=== PATIENT | female | born 1955 | race Caucasian/White ===

== ENCOUNTER → 2019-01-07 09:51 | Outpatient (CLI) | payer OTHER, MEDICAID, SELFPAY ==
[2019-01-07 10:01] LABS: Bacteria Urine None Seen
[2019-01-07 10:32] LABS: Add Manual Diff / Slide Review NO; Basophils Absolute Auto 100 /uL (0-100); Basophils Percent Auto 1.2 % (0-2); Eosinophils Absolute Auto 200 /uL (0-450); Hemoglobin 14.4 g/dL (12.0-16.0); Lymphocytes Absolute Auto 1500 /uL (1100-4500); Lymphocytes Percent Auto 30.8 % (25-40); Mean Corpuscular HGB Conc 34.2 % (30-36); Mean Corpuscular Hemoglobin 29.3 PG (26-34); Mean Corpuscular Volume 85.5 fL (80-100); Monocytes Absolute Auto 400 /uL (0-900); Monocytes Percent Auto 8.9 % (3-14); Neutrophils Absolute Auto 2600 /uL (1500-7000); Neutrophils Percent Auto 54.1 % (50-75); Platelet Count 330 X10^3/uL (150-400); Red Blood Cell Count 4.92 X10^6/uL (4.0-5.2); Red Cell Distribution Width 12.8 % (11.6-14.8); White Blood Cell Count 4.7 X10^3/uL (4.5-11.0)
[2019-01-07 11:06] LABS: Alanine Aminotransferase 27 IU/L (9-52); Albumin 4.4 g/dL (3.5-5.0); Albumin Globulin Ratio 1.5 (1.0-2.8); Alkaline Phosphatase 84 U/L (38-126); Aspartate Aminotransferase 24 IU/L (14-36); BUN Creatinine Ratio 16.7 (6-22); Bilirubin Total 0.6 mg/dL (0.2-1.3); Blood Urea Nitrogen 10 mg/dL (7-17); Calcium 9.4 mg/dL (8.4-10.2); Carbon Dioxide 28 mmol/L (22-32); Chloride 103 mmol/L (98-107); Cholesterol 224 mg/dL (140-199); Estimated Glomerular Filt Rate > 60.0 mL/min (>60); Glucose 110 mg/dL (80-110); HDL Cholesterol 59 mg/dL (40-60); HEMOLYSIS < 15 (0-50); LDL Cholesterol Calculated 150 mg/dL (<100); Potassium 4.4 mmol/L (3.4-5.1); Sodium 140 mmol/L (137-145); Total Protein 7.4 g/dL (6.3-8.2); Triglycerides 73 mg/dL (35-150)
[2019-01-07 11:24] LABS: Appearance Urine UA CLEAR; Bilirubin Urine UA NEGATIVE (NEGATIVE); Color Urine UA YELLOW; Glucose Urine UA NEGATIVE (Negative); Ketones Urine UA NEGATIVE (NEGATIVE); Leukocyte Esterase Urine UA NEGATIVE (NEGATIVE); Nitrite Urine UA NEGATIVE (Negative); Occult Blood Urine UA NEGATIVE (Negative); Protein Urine UA NEGATIVE (Negative); Specific Gravity Urine UA 1.015 (1.000-1.035); Urobilinogen Urine UA 0.2 E.U./dL (0.2); pH Urine UA 6.5 (4.5-8.0)
[2019-01-07 11:26] LABS: Free T3, Triiodothyronine Free 3.54 pg/mL (2.77-5.27); T4 Total Thyroxine 6.67 ug/dL (5.5-11.0)
[2019-01-07 11:31] LABS: Progesterone, Total 2.08 ng/mL
[2019-01-07 11:36] LABS: Cortisol AM (Before 10AM) 6.74 ug/dL (4.46-22.7)
[2019-01-07 12:13] LABS: Culture Indicated Urine Cult Not Indicated; RBC Urine 0-1/HPF (0-5/HPF); Squamous Epithelial Cell Urine 5-10 /HPF (0-5/HPF); WBC Urine 1-5/HPF (0-5/HPF)
[2019-01-09 16:00] LABS: Estrogen 94.9 pg/mL
== END ==
PROVIDERS: PCP Family Medicine; Visit Provider Naturopath
DX: Z00.00 Encounter for general adult medical examination without abnormal findings (principal); N95.1 Menopausal and female climacteric states; F41.9 Anxiety disorder, unspecified
CPT/HCPCS: 36415; 80053; 80061; 81001; 82533; 82672; 84144; 84436; 84443; 84481; 85025

== ENCOUNTER → 2020-01-07 09:12 | Outpatient (CLI) | payer OTHER, MEDICAID, SELFPAY ==
[2020-01-07 10:56] LABS: Hematocrit 43.1 % (36-46); Hemoglobin 14.4 g/dL (12.0-16.0); Mean Corpuscular HGB Conc 33.4 % (30-36); Mean Corpuscular Hemoglobin 29.1 PG (26-34); Mean Corpuscular Volume 87.2 fL (80-100); Platelet Count 293 X10^3/uL (150-400); Red Blood Cell Count 4.95 X10^6/uL (4.0-5.2); Red Cell Distribution Width 13.1 % (11.6-14.8); White Blood Cell Count 4.8 X10^3/uL (4.5-11.0)
[2020-01-07 11:11] LABS: Alanine Aminotransferase 23 IU/L (<35); Albumin 4.3 g/dL (3.5-5.0); Albumin Globulin Ratio 1.6 (1.0-2.8); Alkaline Phosphatase 86 U/L (38-126); Aspartate Aminotransferase 24 IU/L (14-36); BUN Creatinine Ratio 14.8 (6-22); Bilirubin Total 0.6 mg/dL (0.2-1.3); Blood Urea Nitrogen 8 mg/dL (7-17); Calcium 9.4 mg/dL (8.4-10.2); Carbon Dioxide 26 mmol/L (22-32); Chloride 105 mmol/L (98-107); Cholesterol 213 mg/dL (140-199); Estimated Glomerular Filt Rate > 60.0 mL/min (>60); Globulin 2.7 g/dL (1.7-4.1); Glucose 108 mg/dL (80-110); HDL Cholesterol 49 mg/dL (40-60); HEMOLYSIS < 15 (0-50); LDL Cholesterol Calculated 145 mg/dL (<100); Sodium 138 mmol/L (137-145); Triglycerides 97 mg/dL (35-150)
[2020-01-07 11:32] LABS: Free T3, Triiodothyronine Free 3.54 pg/mL (2.77-5.27)
[2020-01-07 11:46] LABS: Thyroid Stimulating Hormone 0.958 uIU/mL (0.47-4.68)
== END ==
PROVIDERS: PCP Nurse Practitioner; Referring Provider Nurse Practitioner; Visit Provider Nurse Practitioner
DX: E04.2 Nontoxic multinodular goiter (principal); E78.5 Hyperlipidemia, unspecified; G40.909 Epilepsy, unspecified, not intractable, without status epilepticus
CPT/HCPCS: 36415; 80053; 80061; 84439; 84443; 84481; 85027

== ENCOUNTER → 2020-02-04 11:57 | Outpatient (CLI) | payer OTHER, MEDICAID, SELFPAY ==
[2020-02-05 09:55] LABS: COVID19 Sendout Not Detected (Not Detect)
== END ==
PROVIDERS: PCP Nurse Practitioner; Visit Provider Nurse Practitioner
DX: Z11.59 Encounter for screening for other viral diseases (principal)
CPT/HCPCS: 87635

== ENCOUNTER 2020-02-07 07:23 | Day surgery (SDC) | payer OTHER, MEDICAID, SELFPAY ==
[2020-02-07] VITALS (18 sets, daily range): BP systolic 75–111; BP diastolic 42–63; PULSE 53–859; RESP 10–16; TEMP 35.9–36.6; O2SAT 92–100; BMI 25.7
[2020-02-07] MEDS: SODIUM CHLORIDE 0.9% 1,000 ML 200 ML IV (07:51)
--- NOTE | 2020-02-07 08:22 | PM.HP.1 ---
History of Present Illness History of Present Illness Date Patient Seen: 02/07/20 Time Patient Seen: 08:22 Chief complaint: SDC Narrative: This is a 64-year-old woman with history of screening colonoscopy 10 years ago which was normal. She is here for her 10 year follow-up. She denies any melena, hematochezia, unexplained abdominal pain, unexplained weight loss, changes in bowel habit. ROS: Sinus problems, depression, anemia, eczema. Thirteen system review is otherwise negative other than as mentioned below and in HPI. PE: GENERAL: Well groomed and cooperative. Appears stated age. Answers questions promptly and appropriately. Vital signs noted. HENT: Normocephalic, atraumatic. Hearing intact. EYES: Conjunctiva pink, sclera white, no periorbital swelling. CARDIOVASCULAR: Regular rate. No pedal edema. RESPIRATORY: Non-tachypneic, breathing comfortably on room air. GASTROINTESTINAL: Abdomen soft and non-distended GENITALURINARY: No flank tenderness. MUSCULOSKELETAL: Equal tone and mass bilaterally. SKIN: Warm, dry, soft, appropriate color for ethnicity. No other lesions, rashes, or wounds. NEURO: Alert and Oriented X 3. No gross sensory deficits, or cognitive issues. PSYCH: Appropriate affect and mood. Patient History Medical History Anemia (Resolved 1974) Chlamydia (Resolved 1994) Depression (Chronic 2004) Dyspareunia (Acute) Eczema (Chronic 2014) Fibroids (Resolved 2002) Genital warts (Chronic 1994) HPV in female (Resolved 1994) Insomnia (Acute) Irregular menstrual cycle (Resolved 1975) Multinodular thyroid (Chronic ~2010) Ovarian cyst (Resolved 2002) Painful menstrual periods (Resolved 2002) Recurrent sinusitis (Resolved 1996) Rheumatic fever (Resolved 1957) Shoulder pain (Resolved 2014) Sjogren's syndrome (Chronic 2014) Skin macule (Acute) Tinnitus of both ears (Chronic 2000) Surgical History History of hysteroscopy (Resolved 08/2009) Status post dilation and curettage Status post surgery (08/18/09) Family & Social History Family History Grandfather Age: 99 Depression Mother Age: 86 Depression COPD (chronic obstructive pulmonary disease) Sister Age: 63 Diabetes mellitus Mental health problem Father Cancer Social History: household members spouse Tobacco & Substance use: Smoking Status Former smoker alcohol intake frequency holiday/special occasion Substance Use Type does not use Meds Home Medications and Allergies Home Medications Medication Instructions Recorded Confirmed Type Biest SR 80/20 See Rx Instructions PO DAILY 11/12/19 02/07/20 History Progesterone E4M See Rx Instructions PO BEDTIME 11/12/19 02/07/20 History pancreatin 1 each PO .COMPLEX 11/18/19 02/07/20 History conjugated estrogens 0.625 mg/gram 0.625 mg VAG DAILY #30 gram 12/04/19 02/07/20 Rx vaginal cream Estriol 1mg Vaginal Emiliana See Rx Instructions .ROUTE 01/20/20 02/07/20 Rx .COMPLEX #30 each Allergies Allergy/AdvReac Type Severity Reaction Status Date / Time codeine Allergy Verified 02/07/20 07:37 oxycodone AdvReac Severe LOSS OF Verified 02/07/20 07:19 CONSCIOUSNESS tetracycline AdvReac Mild NAUSEA Verified 02/07/20 07:19 Exam Vital Signs (past 8 hours): - 02/07/20 07:39 Temperature 97.9 F Pulse Rate 62 Respiratory Rate 16 Blood Pressure 111/62 Pulse Oximetry 98 Oxygen Delivery Method Room Air Assessment & Plan Assessment and plan (1) At average risk for colon cancer: Status: Acute Assessment & Plan narrative: Risks and benefits of screening colonoscopy and possible polypectomy were discussed with the patient including risk of bleeding, perforation, need for additional procedures, risks of anesthesia. The patient desires to proceed with the colonoscopy procedure. COVID-19 COVID-19 status: Negative Result date/Date tested (Pos, Neg/Pending): 02/04/20 Time Spent With Patient Time with patient: 15-24 minutes Quality VTE Deep Vein Thrombosis/Pulmonary Embolism Present on Admission: No
--- NOTE | 2020-02-07 08:29 | PM.OP.ENDO ---
Operative Date/Time/Diagnoses Date of procedure: 02/07/20 Time of procedure: 08:29 Pre-op diagnosis: Average risk for colon cancer, due for 10 year screening Post-op diagnosis: other (A few scattered diverticula, low-grade internal hemorrhoids) Procedure & Clinicians Study performed: Colonoscopy Conscious sedation performed by endoscopist Same procedure as scheduled: Yes Indications: Average risk for colon cancer, had a normal colonoscopy 10 years ago Surgeon: Marisa Velasco Procedure Notes SCOAP/Timeout: Performed Procedure in detail: The patient was brought to the room and placed in left lateral decubitus position with all bony prominences padded. A time-out was performed and then the patient was given procedural sedation starting with 2 mg of Versed and [100] mcg of fentanyl. Total of 3 mg of Versed and 150 micro g of fentanyl were given for the entire procedure. Vitals were monitored throughout the procedure and remained stable. Once adequately sedated, the procedure was begun. A rectal exam was performed revealing [no abnormalities]. The colonoscope was then introduced to the rectum and advanced to the cecum in the usual fashion. []The cecum was identified by the appendiceal orifice, the mucosal tri-fold, and the ileocecal valve. The colon was rather tortuous and required some maneuvers using counter pressure on the abdomen, and the scope stiffener to reach the cecum safely. The scope was then retracted while rotating side to side and examining each mucosal fold. There were a few scattered diverticula, with no signs of diverticulitis. No polyps or masses were seen. [] At the conclusion of the procedure retroflexion was performed and [small grade 1-2 internal hemorrhoids without stigmata of bleeding were seen]. The scope was then withdrawn from the rectum the procedure was concluded. The patient tolerated the procedure well and was transferred to the PACU in stable condition. Scope withdrawal time: 8 Sedation minutes: 13 Findings: other findings (Few scattered diverticula, low-grade internal) Specimen(s): none sent Complications: none Impression: Low-grade diverticulosis, low-grade internal hemorrhoids, otherwise normal colon Post-procedure Recommendations: Colonscopy in 10 years Follow up: as needed Disposition: PACU
[2020-02-07] MEDS: fentaNYL 250 MCG/5 ML INJ IV ×2 (08:30→08:35)
[2020-02-07] MEDS: MIDAZOLAM 5 MG/5 ML VIAL IV ×2 (08:30→08:35)
--- NOTE | 2020-02-07 09:58 | SUR.PHASEII ---
0954 - Pt nauseated after getting dressed. Aromatherapy instituted. Ice pack behind neck. BP rechecked = 75/42. Denies chest pain and SOB. C/O dizziness. Dr Velasco notified by WILVER Desai. See orders.
[2020-02-07] MEDS: ONDANSETRON 4 MG/2 ML INJ (10:05)
[2020-02-07] MEDS: SODIUM CHLORIDE 0.9% 1,000 ML 1000 ML IV (10:08)
--- NOTE | 2020-02-07 10:08 | SUR.PHASEII ---
Notified Dr Velasco of hypotension; patient pale, nauseated. Orders received for zofran, normal saline and EKG. Patient denies any CP or SOB.
--- NOTE | 2020-02-07 10:09 | SUR.PHASEII ---
1010- EKG done. IVF bolus infusing. Color pink. Nausea improved. BP 93/59.
--- NOTE | 2020-02-07 10:21 | SUR.PHASEII ---
updated. No longer nauseated.
--- NOTE | 2020-02-07 10:27 | SUR.PHASEII ---
Dr Velasco at bedside with patient.
--- NOTE | 2020-02-07 11:13 | SUR.PHASEII ---
1107 - Dr Cruz updated on pt status. OK for pt to be discharged.
== END 2020-02-07 11:10 | disposition home or self-care (01) ==
PROVIDERS: PCP Nurse Practitioner; Referring Provider Nurse Practitioner; Visit Provider Surgery
PROC: 0DJD8ZZ Inspection of Lower Intestinal Tract, Via Natural or Artificial Opening Endoscopic (ICD-10-PCS; CPT 45378; principal; 2020-02-07 08:30)
DX: Z12.11 Encounter for screening for malignant neoplasm of colon (principal); K57.30 Diverticulosis of large intestine without perforation or abscess without bleeding; K64.0 First degree hemorrhoids; R11.0 Nausea; R42 Dizziness and giddiness
CPT/HCPCS: 45378; 93005; 99152; J2250; J2405; J3010

== ENCOUNTER → 2020-03-09 13:37 | Outpatient (CLI) | payer OTHER, MEDICAID, SELFPAY ==
--- NOTE | 2020-03-09 13:38 | DI.ECHO.S_ITS ---
[facility]---------+ [facility] +---------+ : : [address] [place] : : : : [id number] : : : : Phone: [phone]+ Echocardiogram Report + + :Name: SHANNON GOODWIN Study Date: 03/09/2020 Height: 65 in : :[facility] Weight: 155 lb : : Gender: Female BSA: 1.8 m2 : :: 1955 Age: 64 yrs BP: 155/78 mmHg: :Reason For Study: RIGHT BUNDLE BRANCH BLOCK : :Ordering Physician: SAUL, : :RAKEL Performed By: Cony Hernandez : :Referring: RAKEL HUGHES : + + Interpretation Summary Normal echo study. Procedure: A two-dimensional transthoracic echocardiogram with color flow and Doppler was performed. The study quality was technically adequate. There is no prior echocardiogram noted for this patient. The heart rate ranged between 59-64 bpm during the study. Left Ventricle: The left ventricle is normal in size and wall thickness. The ejection fraction is estimated to be 60-65%. There are no focal wall motion abnormalities. Diastolic parameters suggest probable normal left ventricular diastolic function and normal filling pressures. Right Ventricle: The right ventricle is normal in size and function. Atria: Both atria are normal in size. There is no Doppler evidence for an interatrial shunt. Mitral Valve: The mitral valve is normal in structure and function. There is trace mitral regurgitation. Aortic Valve: The aortic valve is trileaflet. The aortic valve opens well. There is no aortic valve stenosis. There is trace aortic regurgitation. Tricuspid Valve: The tricuspid valve is normal in structure and function. There is trace tricuspid regurgitation. Pulmonic Valve: The pulmonic valve leaflets are thin and pliable; valve motion is normal. There is no pulmonic valvular regurgitation. Great Vessels: The aortic root is normal size. The dimensions of the ascending aorta are normal. The inferior vena cava appeared normal. Pericardium/ Pleura There is no pericardial effusion. There is no pleural effusion. MMode/2D Measurements & Calculations LVIDd: 4.3 cm LVOT diam: 1.9 cm LVIDs: 2.7 cm Ao root diam: 2.9 cm FS: 37.4 % asc Aorta Diam: 2.7 cm EPSS: 0.21 cm Ao Arch Diam (Prox Trans): 2.7 cm IVSd: 0.69 cm LVPWd: 0.75 cm LV yoder. diameter/BSA (cm/m^2): 2.4 LV sys. diameter/BSA (cm/m^2): 1.5 LA A2 area: 19.5 cm2 RA long axis: 4.9 cm LA A4 area: 16.6 cm2 RA area: 15.2 cm2 LA length (vol): 5.5 cm RA vol: 40.4 ml LA vol: 49.7 ml RA : 22.8 ml/m2 LA vol index: 28.0 ml/m2 IVC diam: 1.1 cm RVD1 (basal): 2.9 cm TAPSE: 2.6 cm Doppler Measurements & Calculations Ao V2 max: 162.3 cm/sec LVOT Max Lewis: 145.3 cm/sec Ao V2 mean: 109.5 cm/sec LV V1 max P.4 mmHg Ao max P.5 mmHg LV V1 VTI: 33.2 cm Ao mean P.5 mmHg DWIGHT(I,D): 2.7 cm2 Ao V2 VTI: 36.3 cm DWIGHT(V,D): 2.7 cm2 sev ratio: 0.92 DWIGHT indexed to BSA (cm^2/m^2): 1.5 MV E max lewis: 96.5 cm/sec TR max lewis: 227.0 cm/sec MV A max lewis: 77.2 cm/sec TR max P.6 mmHg MV E/A: 1.2 PA V2 max: 82.8 cm/sec Med Peak E' Lewis: 9.6 cm/sec PA V2 mean: 54.9 cm/sec E/E' med: 10.0 PA mean P.4 mmHg Lat Peak E' Lewis: 11.9 cm/sec PA pr(Accel): 13.9 mmHg E/E' lat: 8.1 E/e' average: 9.1 MV dec time: 0.25 sec SV(LVOT): 99.0 ml Electronically signed by: Liana Mansfield on Reading Physician:03/09/2020 03:48 PM
== END ==
PROVIDERS: PCP Nurse Practitioner; Referring Provider Nurse Practitioner; Visit Provider Nurse Practitioner
DX: I45.10 Unspecified right bundle-branch block (principal)
CPT/HCPCS: 93306

== ENCOUNTER → 2020-04-03 09:55 | Outpatient (CLI) | payer OTHER, MEDICAID, SELFPAY ==
--- NOTE | 2020-04-03 09:56 | DI.RAD.S_ITS ---
PROCEDURE: XR SHOULDER LT MIN 2V INDICATIONS: left shoulder pain ; injury TECHNIQUE: 3 views of the shoulder were acquired. COMPARISON: None. FINDINGS: Bones: No fractures or dislocations. No suspicious bony lesions. Visualized ribs appear intact. Mild joint narrowing with periarticular osteophyte formation. Soft tissues: No suspicious soft tissue calcifications. IMPRESSION: Mild acromioclavicular and glenohumeral joint degeneration. Dictated by: Adan Means Merline Interpreted: Christiana Barron MD on 04/03/2020 at 11:56 Approved by: Christiana Barron M.D. on 04/03/2020 at 13:08
== END ==
PROVIDERS: PCP Nurse Practitioner; Referring Provider Registered Nurse; Visit Provider Registered Nurse
DX: S49.92XA Unspecified injury of left shoulder and upper arm, initial encounter (principal); M25.512 Pain in left shoulder; M19.012 Primary osteoarthritis, left shoulder; X58.XXXA Exposure to other specified factors, initial encounter
CPT/HCPCS: 73030

== ENCOUNTER → 2020-06-19 10:31 | Outpatient (CLI) | payer OTHER, MEDICAID, SELFPAY ==
[2020-06-19] MEDS: COVID-19 VACC(MODERNA-1)/PF 100 MCG/0.5 ML VIAL IM (10:36)
== END ==
PROVIDERS: PCP Nurse Practitioner; Visit Provider Internal Medicine
DX: Z23 Encounter for immunization (principal)
CPT/HCPCS: 0011A; 91301

== ENCOUNTER → 2020-07-17 10:25 | Outpatient (CLI) | payer OTHER, MEDICAID, SELFPAY ==
[2020-07-17] MEDS: COVID-19 VACC #2, MRNA(MOD) 100 MCG/0.5 ML VIAL IM (10:33)
== END ==
PROVIDERS: PCP Nurse Practitioner; Visit Provider Internal Medicine
DX: Z23 Encounter for immunization (principal)
CPT/HCPCS: 0012A; 91301

== ENCOUNTER → 2022-02-08 08:36 | Outpatient (CLI) | payer OTHER, MEDICAID, SELFPAY ==
[2022-02-09 08:48] LABS: Fecal Immunochemical Test Negative (Negative)
== END ==
PROVIDERS: PCP Nurse Practitioner; Referring Provider Nurse Practitioner; Visit Provider Nurse Practitioner
DX: Z00.00 Encounter for general adult medical examination without abnormal findings (principal); Z12.11 Encounter for screening for malignant neoplasm of colon
CPT/HCPCS: 82274

== ENCOUNTER → 2022-02-24 07:28 | Outpatient (CLI) | payer OTHER, MEDICAID, SELFPAY ==
[2022-02-24 08:37] LABS: Add Manual Diff / Slide Review NO; Basophils Absolute Auto 100 /uL (0-100); Basophils Percent Auto 1.3 % (0-2); Eosinophils Absolute Auto 600 /uL (0-450); Eosinophils Percent Auto 10.7 % (2-4); Hematocrit 42.4 % (36-46); Hemoglobin 14.3 g/dL (12.0-16.0); Lymphocytes Absolute Auto 1700 /uL (1100-4500); Lymphocytes Percent Auto 31.3 % (25-40); Mean Corpuscular HGB Conc 33.7 % (30-36); Monocytes Absolute Auto 500 /uL (0-900); Monocytes Percent Auto 8.6 % (3-14); Neutrophils Absolute Auto 2600 /uL (1500-7000); Neutrophils Percent Auto 48.1 % (50-75); Platelet Count 312 X10^3/uL (150-400); Red Blood Cell Count 4.93 X10^6/uL (4.0-5.2); Red Cell Distribution Width 13.5 % (11.6-14.8); White Blood Cell Count 5.5 X10^3/uL (4.5-11.0)
[2022-02-24 08:54] LABS: Alanine Aminotransferase 24 IU/L (<35); Albumin 4.1 g/dL (3.5-5.0); Albumin Globulin Ratio 1.2 (1.0-2.8); Alkaline Phosphatase 81 U/L (38-126); Aspartate Aminotransferase 29 IU/L (14-36); BUN Creatinine Ratio 14.5 (6-22); Bilirubin Total 0.6 mg/dL (0.2-1.3); Blood Urea Nitrogen 9 mg/dL (7-17); Calcium 8.9 mg/dL (8.4-10.2); Carbon Dioxide 27 mmol/L (22-32); Chloride 105 mmol/L (98-107); Cholesterol 229 mg/dL (140-199); Estimated Glomerular Filt Rate > 60 mL/min (>60); Globulin 3.3 g/dL (1.7-4.1); Glucose 109 mg/dL (80-110); HDL Cholesterol 51 mg/dL (40-60); HEMOLYSIS < 15 (0-50); LDL Cholesterol Calculated 158 mg/dL (<100); Potassium 4.4 mmol/L (3.4-5.1); Sodium 138 mmol/L (137-145); Total Protein 7.4 g/dL (6.3-8.2); Triglycerides 99 mg/dL (35-150)
[2022-02-24 09:03] LABS: Free T3, Triiodothyronine Free 3.93 pg/mL (2.77-5.27); Free T4, Direct Thyroxine 1.11 ng/dL (0.78-2.19)
[2022-02-24 09:17] LABS: Thyroid Stimulating Hormone 1.24 uIU/mL (0.47-4.68)
[2022-02-24 16:56] LABS: Hep C Virus Ab w/Reflex Quant NEGATIVE s/c (NEGATIVE)
== END ==
PROVIDERS: PCP Nurse Practitioner; Referring Provider Nurse Practitioner; Visit Provider Nurse Practitioner
DX: Z00.00 Encounter for general adult medical examination without abnormal findings (principal); Z11.59 Encounter for screening for other viral diseases
CPT/HCPCS: 80053; 80061; 84439; 84443; 84481; 85025; 86803

== ENCOUNTER → 2022-03-17 07:35 | Outpatient (CLI) | payer OTHER, MEDICAID, SELFPAY ==
--- NOTE | 2022-03-17 07:36 | DI.MG.S_ITS ---
BILATERAL DIGITAL SCREENING MAMMOGRAM 3D/2D WITH CAD: 03/17/2022 CLINICAL: Routine screening. Comparison is made to exams dated: 08/14/2017 mammogram, 07/05/2013 mammogram, and 09/03/2014 mammogram - [facility]. There are scattered areas of fibroglandular density in both breasts (category b / 25%-50% glandular tissue). Current study was also evaluated with a Computer Aided Detection (CAD) system. There is a new asymmetry in the right breast at 5 o'clock anterior depth. No other significant masses, calcifications, or other findings are seen in either breast. IMPRESSION: INCOMPLETE: NEEDS ADDITIONAL IMAGING EVALUATION The new asymmetry in the right breast is indeterminate. A diagnostic mammogram and ultrasound is recommended. Based on the Tyrer Cuzick model (a risk assessment model) the patient's lifetime risk is 5.0% and her 10 year risk is 2.3%. According to the ACR, ACS, and NCCN guidelines, an annual breast MRI exam along with mammogram is recommended if the patient's lifetime risk is 20% or greater. This exam was interpreted at Station ID: [id number]. NOTE: For mammograms, a report in lay terms will be sent to the patient. Approximately 15% of breast malignancies will not be visualized mammographically. In the management of a palpable breast mass, a negative mammogram must not discourage biopsy of a clinically suspicious lesion. Electronically Signed By: Octavio Marshall M.D., jr/pio:03/21/2022 10:23:09 letter sent: Additional Imaging Needed ACR BI-RADS Category 0: Incomplete 3340F
== END ==
PROVIDERS: PCP Nurse Practitioner; Referring Provider Nurse Practitioner; Visit Provider Nurse Practitioner
DX: Z12.31 Encounter for screening mammogram for malignant neoplasm of breast (principal)
CPT/HCPCS: 77063; 77067

== ENCOUNTER → 2022-03-28 06:58 | Outpatient (CLI) | payer OTHER, MEDICAID, SELFPAY ==
--- NOTE | 2022-03-28 06:59 | DI.US.S_ITS ---
PROCEDURE: US THYROID INDICATIONS: GOITER TECHNIQUE: Real-time scanning was performed of the thyroid gland, with image documentation. COMPARISON: [facility], US, THYROID, 12/17/2010, 8:07. [facility] Ultrasound, [place], US THYROID, 01/22/2018, 10:54. [facility], US, THYROID, 12/26/2016, 15:15. FINDINGS: Right: Thyroid lobe measures 6.1 x 2.0 x 2.4 cm, and is heterogeneous in echotexture. Elongated the prior study. Left: Thyroid lobe measures 8.4 x 2.3 x 2.3 cm, and is heterogeneous in echotexture. Elongated since the prior study Isthmus: 12.2 mm thick. Thickened since the prior study. There are numerous nodules in both lobes and the isthmus, greater than nine. There are dominant solid nodules in the lower poles bilaterally, previously biopsied, and benign. The right dominant nodule has grown by 6 mm in one direction, and the left is grown by 7 mm. Two of the smaller nodules previously detailed are no longer evident given gland heterogeneity. None of the nodules have grown above size threshold for biopsy, or developed any suspicious features. There are no suspicious medial or lateral compartment lymph nodes on either side of the neck. IMPRESSION: 1. Enlarged, multinodular thyroid gland including bilateral lower pole benign dominant nodules. 2. No suspicious features have developed in any of the nodules. 3. No local adenopathy in the neck. ACR TI-RADS definitions and recommendations: TI-RADS 1 (benign): 0 points. FNA not needed. TI-RADS 2 (not suspicious): 2 points. FNA not needed. TI-RADS 3 (mildly suspicious): 3 points. * FNA if 2.5 cm or larger, follow up if 1.5 cm or larger (at 1, 3, and 5 years). TI-RADS 4 (moderately suspicious): 4-6 points. * FNA if 1.5 cm or larger, follow up if 1 cm or larger (at 1, 2, 3, and 5 years). TI-RADS 5 (highly suspicious): 7 points or more. * FNA if 1 cm or larger, follow up if 0.5 cm or larger (every year for 5 years). Dictated by: Dominga Brown M.D. on 03/28/2022 at 12:27 Approved by: Dominga Brown M.D. on 03/28/2022 at 12:41
== END ==
PROVIDERS: PCP Nurse Practitioner; Referring Provider Nurse Practitioner; Visit Provider Nurse Practitioner
DX: E04.2 Nontoxic multinodular goiter (principal)
CPT/HCPCS: 76536

== ENCOUNTER → 2022-04-11 09:09 | Outpatient (CLI) | payer MEDICARE, OTHER, MEDICAID, SELFPAY ==
--- NOTE | 2022-04-11 | DI.MG.S_ITS ---
UNILATERAL RIGHT DIGITAL DIAGNOSTIC MAMMOGRAM 3D/2D WITH ADDITIONAL VIEWS: 04/11/2022 CLINICAL: Additional evaluation requested from prior study. Comparison is made to exams dated: 03/17/2022 mammogram, 08/14/2017 mammogram, and 09/03/2014 mammogram - [facility]. There are scattered areas of fibroglandular density in the right breast (category b / 25%-50% glandular tissue). There is a new 1 cm irregular focal asymmetry in the right breast at 4 o'clock anterior depth. No other significant masses or calcifications are seen in the breast. IMPRESSION: INCOMPLETE: NEEDS ADDITIONAL IMAGING EVALUATION The new 1 cm irregular focal asymmetry in the right breast is indeterminate. A targeted ultrasound is recommended and will immediately follow. Based on the Tyrer Cuzick model (a risk assessment model) the patient's lifetime risk is 5.0% and her 10 year risk is 2.3%. According to the ACR, ACS, and NCCN guidelines, an annual breast MRI exam along with mammogram is recommended if the patient's lifetime risk is 20% or greater. This exam was interpreted at Station ID: [id number]. NOTE: For mammograms, a report in lay terms will be sent to the patient. Approximately 15% of breast malignancies will not be visualized mammographically. In the management of a palpable breast mass, a negative mammogram must not discourage biopsy of a clinically suspicious lesion. Electronically Signed By: Sj Cannon M.D. slc/:04/11/2022 12:34:42 ACR BI-RADS Category 0: Incomplete 3340F
--- NOTE | 2022-04-11 09:11 | DI.US.S_ITS ---
LIMITED ULTRASOUND OF RIGHT BREAST AND AXILLA: 04/11/2022 CLINICAL: Patient returns today to evaluate a focal asymmetry in the right breast. Comparison is made to exams dated: 04/11/2022 mammogram, 03/17/2022 mammogram, 08/14/2017 mammogram, and 09/03/2014 mammogram - [facility]. Color flow and real-time ultrasound of the right breast 4-5 o'clock, and axilla regions were performed. Gutiérrez scale images of the real-time examination were reviewed. There is a 0.9 cm x 0.9 cm x 0.8 cm irregular mass in the right breast at 4 o'clock anterior depth. This irregular mass is hypoechoic. This correlates with mammography findings. Color flow imaging demonstrates that there is no vascularity present. No significant abnormalities were seen sonographically in the right axilla. IMPRESSION: SUSPICIOUS OF MALIGNANCY The 0.9 cm x 0.9 cm x 0.8 cm irregular mass in the right breast is at a moderate suspicion for malignancy. -An ultrasound guided biopsy is recommended. No enlarged right axillary lymph nodes. Exam findings were discussed with the patient by Dr. Simpson. This exam was interpreted at Station ID: [id number]. Electronically Signed By: Sj Cannon M.D. slc/:04/11/2022 13:19:28 letter sent: Biopsy Required Ultrasound BI-RADS: 4b Moderate suspicion of malignancy
== END ==
PROVIDERS: PCP Nurse Practitioner; Referring Provider Nurse Practitioner; Visit Provider Nurse Practitioner
DX: R92.8 Other abnormal and inconclusive findings on diagnostic imaging of breast (principal); N63.14 Unspecified lump in the right breast, lower inner quadrant
CPT/HCPCS: 76642; 77065; G0279

== ENCOUNTER → 2022-05-11 13:50 | Outpatient (CLI) | payer MEDICARE, MEDICAID, SELFPAY ==
--- NOTE | 2022-05-11 | DI.MG.S_ITS ---
UNILATERAL RIGHT DIGITAL DIAGNOSTIC MAMMOGRAM 3D/2D POST-NEEDLE BIOPSY: 05/11/2022 CLINICAL: Post clip. Comparison is made to exams dated: 04/11/2022 ultrasound, 04/11/2022 mammogram, and 03/17/2022 mammogram - [facility]. There are scattered areas of fibroglandular density in the right breast (category b / 25%-50% glandular tissue). There also is a marker clip in the appropriate position in the right breast at 2 o'clock anterior depth. No other significant masses or calcifications are seen in the breast. IMPRESSION: INCOMPLETE: NEEDS ADDITIONAL IMAGING EVALUATION There was a successful marker clip placement in the right breast at 2 o'clock anterior depth. Based on the Tyrer Cuzick model (a risk assessment model) the patient's lifetime risk is 4.8% and her 10 year risk is 2.3%. According to the ACR, ACS, and NCCN guidelines, an annual breast MRI exam along with mammogram is recommended if the patient's lifetime risk is 20% or greater. This exam was interpreted at Station ID: [id number]. NOTE: For mammograms, a report in lay terms will be sent to the patient. Approximately 15% of breast malignancies will not be visualized mammographically. In the management of a palpable breast mass, a negative mammogram must not discourage biopsy of a clinically suspicious lesion. Electronically Signed By: Refugio Oliva M.D. acr/:05/18/2022 12:41:35 ACR BI-RADS Category 0: Incomplete 3340F
--- NOTE | 2022-05-11 | PATH_ITS ---
[facility] Accession Number: [id number] . 01 Material submitted: . breast - RIGHT BREAST MASS 4:00 RETROAREOLAR . 01 Diagnosis: A. Right Breast Mass, 4 o'clock, Retroareolar, Needle Core Biopsy: Invasive (ductal) carcinoma with mucinous features, grade 2/3 ([place] combined histologic grade, total score 6/9), with the following features: 1. Nuclear pleomorphism: Intermediate (2/3). 2. Mitotic rate: Low (1/3). 3. Tubular differentiation: Little (3/3). 4. Size of invasive carcinoma: Present on multiple cores, single largest dimension of 2.5 mm in this sample. 5. Ductal carcinoma in situ: Not present. 6. Calcifications: Not present. 7. Lymphatic invasion: Not present in this specimen. 8. Prognostic markers: - Estrogen receptor: Positive (more than 95%, strong). - Progesterone receptor : Negative (less than 1%, weak/blush). - Her2: Negative for protein overexpression by immunohistochemistry (1+); see comment. . Comment: Scant tumor nests are present on the tissue sections for Her2 IHC; given the scant lesional tissue, repeat Her2 testing by IHC is recommended on the excision specimen. [facility] 05/17/2022 0933 Local . 01 Electronically signed: . Yanely Sheth MD, Pathologist NPI- [id number] . 01 Gross description: . Received one formalin-filled container, labeled with the patient's name and designated right breast mass 4 o'clock retro-areolar. The specimen is received with a plastic filter in container, sample loose in container and consists of multiple fragments of yellow-dorado soft tissue which range in size from less than 0.1 cm to 1.0 x 0.4 x 0.3 cm. All fragments are totally submitted in one cassette. Possible collection date and time per requisition: 05/11/22 at 1457. Total fixation time: Approximately 12 hours.([id number]) /JOSE RAMON 05/12/2022 0251 Local . 01 Microscopic: . P63 and smooth muscle myosin immunostains are obtained on block A1 in order to assess the areas of invasive carcinoma, with appropriately staining external controls. The invasive tumor cells demonstrate scattered positive cells for p63, however, p63 is negative around the edges of the invasive nests. Smooth muscle myosin is negative around the edges of the tumor nests; the immunohistologic findings are in support of the diagnosis. . Predictive marker immunohistochemical studies are performed on block A1 with the invasive carcinoma showing the following results: . Estrogen receptor (SP1): Positive (more than 95% tumor cells staining, staining intensity: Strong). Progesterone receptor (1E2): Negative (Less than 1% tumor cells staining, staining intensity: blush immunoreactivity). Her2 (4B5): Negative for protein overexpression by immunohistochemistry (1+). . Internal controls for ER and HI are positive. Cold ischemic time is <5 minutes. The scoring criteria for breast biomarkers by immunohistochemistry is based on the ASCO/CAP guidelines (Dominic AC et al, J Clin Oncol: 2018 Dec 12;36(20):0565-7751 and John RAE et al, Arch Pathol Lab Med: 2009;134(6):907-22). Deparaffinized sections of formalin fixed tissue (along with appropriate positive controls) are incubated with the above antibody(s). Using the automated [place] stainer, tissue is incubated with the designated antibody which is then localized by a non-biotin, dual polymer detection system. The external controls are reviewed for appropriate reactivity and found to be adequate. Results on the target cell population are indicated above. These tests have not been validated on decalcified tissue. This test was developed and its performance characteristics determined by [employer]. It has not been cleared or approved by the U.S. Food and Drug Administration. The FDA has determined that such clearance or approval is not necessary. This test is used for clinical purposes. It should not be regarded as investigational or for research. . 01 Pathologist provided ICD-10: C50.011 . 01 CPT . 311325, 085513, 227040, 045763, V95803, F01844 Performed at: 01 [facility] [address], [place], [place] [id number] MD Jeremiah Vang MD Phone: [phone]
--- NOTE | 2022-05-11 13:55 | DI.US.S_ITS ---
PROCEDURE: US BX BREAST PERC W VAC DEVICE COMPARISON: [facility], MG, MM DIAGNOSTIC MAMMO UNILAT RT2D, 05/11/2022, 14:56. INDICATIONS: RIGHT BREAST MASS FINDINGS: IMPRESSION: Dictated by: Refugio Oliva M.D. on 05/18/2022 at 12:38 Approved by: Refugio Oliva M.D. on 05/18/2022 at 12:41
--- NOTE | 2022-05-11 14:18 | DI.US.S_ITS ---
Procedure: US bx breast perc w vac device ULTRASOUND GUIDED BIOPSY RIGHT BREAST USING VACUUM DEVICE WITH MARKING DEVICE INSERTED AND POST MAMMOGRAPHIC IMAGIN05/11/2022 CLINICAL: Right breast mass. PATIENT CONSENT: Risks (minor bleeding, infection, vasovagal reaction and repeat procedure), benefits and alternatives were explained to the patient and written informed consent was obtained. Correlation is made to exams dated: 04/11/2022 ultrasound, 04/11/2022 mammogram, 03/17/2022 mammogram, and 08/14/2017 mammogram - . An ultrasound guided biopsy using real-time ultrasound was performed for the 0.9 cm x 0.9 cm x 0.8 cm irregular shaped mass located in the right breast at 4 o'clock anterior depth. The skin was prepped in the usual manner. Local anesthetic was administered to the access site. The abnormality was approached from the lateral aspect. A 13 gauge biopsy needle was placed adjacent to the abnormality under ultrasound guidance. Once the needle was documented to be in the correct location, six specimens were obtained using the Mammotome biopsy system. A clip was inserted into the biopsy cavity. Post procedure mammographic imaging demonstrates the location device at the targeted area. The specimens were sent to the laboratory for pathological analysis. IMPRESSION: ULTRASOUND GUIDED BIOPSY MALIGNANT Ultrasound guided biopsy of the 0.9 cm x 0.9 cm x 0.8 cm mass in the right breast at 4 o'clock anterior depth was successful. 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 Pathology results are concordant with imaging findings. Surgical/oncologic consultation recommended. Continued Report - Page 2 of 2 Patient Name: SHANNON GOODWIN date: 1955 Sex: F Attending Physician: Harman Indications: Date: 05/11/2022 14:59 At the request of: RAKEL HUGHES Procedure: US bx breast perc w vac device This exam was interpreted at Station ID: [id number]. Refugio Lloyd M.D. acr,lc/:05/18/2022 16:29:13
== END ==
PROVIDERS: PCP Nurse Practitioner; Referring Provider Nurse Practitioner; Visit Provider Nurse Practitioner
DX: C50.311 Malignant neoplasm of lower-inner quadrant of right female breast (principal); Z17.0 Estrogen receptor positive status [ER+]
CPT/HCPCS: 19083; 77065

== ENCOUNTER → 2022-07-05 06:57 | Outpatient (CLI) | payer MEDICARE, MEDICAID, SELFPAY ==
--- NOTE | 2022-07-05 06:58 | DI.NM.S_ITS ---
PROCEDURE: NM SENTINEL NODE INJECT ONLY RADIOPHARMACEUTICAL: 0.5-1.0 mCi Millipore filtered Tc-99m sulfur colloid. INDICATIONS: R side breast cancer COMPARISON: None. PROCEDURE: The area around the nipple was prepped and draped in a sterile fashion. Tc-99m sulfur colloid was injected intra-dermally around the outer edge of the areola in the right breast. No image was obtained. IMPRESSION: Administration of radiotracer into the right breast periareolar region for intra-operative sentinel lymph node localization. Dictated by: Lewis Lloyd M.D. on 07/05/2022 at 8:52 Approved by: Lewis Lloyd M.D. on 07/05/2022 at 8:52
--- NOTE | 2022-07-05 06:58 | DI.US.S_ITS ---
ULTRASOUND GUIDED WIRE LOCALIZATION RIGHT BREAST WITH POST MAMMOGRAPHIC IMAGIN07/05/2022 CLINICAL: Pre-op wire localization with ultrasound guidance. Correlation is made to exams dated: 07/05/2022 mammogram, 05/11/2022 ultrasound biopsy, 05/11/2022 mammogram, and 04/11/[address] [facility]. A wire localization using ultrasound guidance was performed for the marker clip located in the right breast at 4 o'clock middle depth. The skin was prepped in the usual manner. A wire was inserted into the targeted area under ultrasound guidance. Post placement mammographic imaging demonstrates the wire rests in the targeted area. IMPRESSION: WIRE LOCALIZATION Wire localization for the marker clip in the right breast at 4 o'clock middle depth was successful. This exam was interpreted at Station ID: [id number]. Benitez Gomez M.D. fx/:07/05/2022 13:31:18
== END ==
PROVIDERS: PCP Nurse Practitioner; Referring Provider Surgery; Visit Provider Surgery
DX: C50.911 Malignant neoplasm of unspecified site of right female breast (principal)
CPT/HCPCS: 19285; 38792; A9541; C1819

== ENCOUNTER 2022-07-05 07:38 | Day surgery (SDC) | payer MEDICARE, MEDICAID, SELFPAY ==
[2022-06-29 15:09] VITALS: BMI 27.1
[2022-07-05] VITALS (7 sets, daily range): BP systolic 78–117; BP diastolic 36–87; PULSE 61–83; RESP 11–17; TEMP 36.2–36.7; O2SAT 96–98; BMI 27.1
--- NOTE | 2022-07-05 | PATH_ITS ---
[facility] Accession Number: [id number] No. of containers..04 Tissue . 01 Material submitted: . PART A: breast - RIGHT BREAST TISSUE PART B: lymph node - RIGHT BREAST SENTINEL NODE PART C: lymph node - ADDITIONAL HOT LYMPH NODES PART D: axillary tail of breast - AXILLARY TISSUE WITHOUT RADIO SIGNAL . 01 Diagnosis: A. Right Breast, Excision: Mucinous carcinoma. Please see CAP Summary Data below. . B. Right Breast [place] Node, Excision: One lymph node negative for metastatic carcinoma. . C. Additional Hot Lymph Nodes, Excision: Two lymph nodes negative for metastatic carcinoma. . D. Axillary Tissue, Biopsy: Benign fibroadipose tissue. No lymph nodes identified. Negative for atypia or malignancy. . . CAP CASE SUMMARY (BREAST.INVASIVE_4.8.0.May) . Procedure: Excision. Specimen laterality: Right. Tumor site: 4 o'clock, retroareolar. Histologic type: Mucinous carcinoma. Histologic grade (Cindy histologic score) Glandular/tubular differentiation: Score 2. Nuclear pleomorphism: Score 1. Mitotic rate: Score 1. Overall grade: Grade 1. . Tumor size: Greatest dimension of largest invasive focus: 12 mm. Tumor focality: Single focus of invasive carcinoma. Ductal carcinoma in situ: Not identified. Lymphovascular invasion: Not identified. Microcalcifications: Not identified. Treatment effect in the breast: No known presurgical therapy. Treatment effect in lymph nodes: Not applicable. . Margin status for invasive carcinoma: All margins negative for invasive carcinoma. Distance from invasive carcinoma to closest margin: Less than 0.5 mm, black, posterior margin. . Regional lymph node status: Regional lymph nodes present. All regional lymph nodes negative for tumor. Total number of lymph nodes examined: Three. Number of sentinel nodes examined: Three. . pTNM classification (AJCC 8th Edition): pT category: pT1c pN category: pN0(sn) pM categore: Not applicable. . Additional findings: Biopsy site changes. Special studies: Estrogen receptor status (performed on previous biopsy: [id number]): Positive, greater than 95%, strong. Progesterone receptor status: Negative. HER2 by immunohistochemistry: Negative (Score 1+). MRV 07/11/2022 1422 Local . 01 Electronically signed: . Sirena Alston MD, Pathologist NPI- [id number] . 01 Gross description: . A. Received: In formalin, labeled with the patient's name, , and right breast tissue. Specimen: Right lumpectomy specimen. Weight: 12 grams. Measurement: 1.3 cm anterior to posterior, 4.6 cm medial to lateral, and 3.5 cm superior to inferior. Skin Ellipse: Absent. Wire: Present, penetrating laterally and exiting medially. Margins: Inked by the surgeon as follows: Anterior green, inferior blue, lateral orange, medial yellow, posterior black, superior red. The ink has bled moderately and is reinforced at the bench. Sliced: From lateral to medial into nine 3 mm slices. Lesion Description: A single firm dorado ill-defined lesion. Size: 1.2 x 1.2 x 1.1 cm. Slices involved: Slices 5-8. Biopsy Site: Present, cylindrical clip in slice 8. Distance to margins: Grossly approaches the black margin, 0.3 cm from the green margin, 0.4 cm from the red margin, and greater than 0.5 cm from all remaining margins. Other: The remaining cut surfaces consist of blue tinted lobulated fibroadipose tissue with fibrous tissue occupying approximately 10% of the cut surface. No additional lesions or biopsy sites are grossly identified. Fixation time: The specimen was removed on 07/05/2022 at 1120. Time in formalin not provided. Cold ischemic time cannot be calculated. Total fixation time is approximately 32 hours. The specimen is submitted entirely as follows: A1-A2: Entire slice 1, orange margin perpendicular. A3: Entire slice 2. A4: Entire slice 3. A5: Entire slice 4, no lesion. A6: Entire slice 5, with lesion. A7: Entire slice 6. A8: Entire slice 7. A9: Entire slice 8, with biopsy site. A10-A12: Entire slice 9, yellow margin perpendicular. . B. Received in formalin labeled with the patient's name, and right breast sentinel node, and consists of a single fragment of yellow lobulated adipose tissue measuring 1.8 x 0.6 x 0.3 cm. Palpation reveals a blue tinted lymph node candidate measuring 0.5 x 0.3 x 0.3 cm. The specimen is bisected and submitted entirely in cassette B1. . C. Received in formalin labeled with the patient's name, and additional hot lymph nodes, and consists of two fragments of yellow to brown soft tissue. The first measures 1.9 x 1.4 x 0.6 cm. The second fragment measures 1.0 x 0.7 x 0.4 cm. Palpation reveals one dorado lymph node candidate within the first fragment measuring 0.6 cm in greatest dimension. The second fragment reveals a single dorado lymph node candidate measuring 0.5 cm in greatest dimension. Both fragments are bisected and submitted entirely as follows: C1-C2: Bisected first fragment. C3: Bisected second fragment. . Parts B and C were removed on 07/05/2022, time not provided. Cold ischemic time cannot be calculated. Total fixation time is approximately 32 hours. . D. Received in formalin labeled with the patient's name, and axillary tissue without radial signal, and consists of three fragments of yellow to brown lobulated adipose tissue. The first measures 2.0 x 1.7 x 0.6 cm. The second fragment measures 2.0 x 0.5 x 0.3 cm. The third fragment measures 1.0 x 0.7 x 0.6 cm. No additional lymph node candidates are identified upon palpation. The specimen is submitted entirely as follows: D1-D2: First fragment. D3: Intact second fragment. D4: Intact third fragment. ([id number]) /MRV 07/06/2022 0925 Local . 01 Microscopic: . Immunohistochemical stains were performed to characterize cells of interest. All controls showed appropriate reactivity. . Testing performed on Block Number: A8 . D2-40: Highlights lymphatic spaces. Progesterone Receptor (1E2): Negative HER2 by immunohistochemistry (4B5): Negative (Score 1+) . . TECHNICAL NOTE: Cold Ischemia and Fixation Times: Meets requirements in the latest version of the ASCO/CAP guidelines. The scoring criteria for breast biomarkers by immunohistochemistry is based on the current ASCO/CAP guidelines (John et al, Arch Pathol Lab Med 2010: 134(6): 907-922 / Dominic Flannery, Arch Pathol Lab Med 2014: 138(2): 241-256). Deparaffinized sections of formalin fixed tissue (along with appropriate positive controls) are incubated with the above antibody(s). Using the automated [place] stainer, tissue is incubated with the designated antibody* which is then localized by a non-biotin, dual polymer detection system. The external controls are reviewed for appropriate reactivity and found to be adequate. Results on the target cell population are indicated above. These tests have not been validated on decalcified tissue. * This test was developed and its performance characteristics determined by [employer]. It has not been cleared or approved by the U.S. Food and Drug Administration. The FDA has determined that such clearance or approval is not necessary. This test is used for clinical purposes. It should not be regarded as investigational or for research. . 01 Pathologist provided ICD-10: C50.919 . 01 CPT . 172842, 914031, 625548, 630270, N42716, 658845, 175260 Specimen Comment: A courtesy copy of this report has been sent to Pathology Performed at: 01 [facility] [address] [place] [address], [place], [place] [id number] MD Jeremiah Vang MD Phone: [phone]
--- NOTE | 2022-07-05 | DI.MG.S_ITS ---
SPECIMEN: 07/05/2022 CLINICAL: Right breast speciman. Correlation is made to exam dated: 07/05/2022 mammogram - [facility]. The targeted biopsy marker clip is present within the middle of the specimen, as well as the localization wire. IMPRESSION: SPECIMEN Targeted lesion within the surgical specimen. This exam was interpreted at Station ID: [id number]. Benitez Gomez M.D. fx/:07/05/2022 13:36:44
--- NOTE | 2022-07-05 | DI.MG.S_ITS ---
UNILATERAL RIGHT DIGITAL DIAGNOSTIC MAMMOGRAM 3D/2D POST-NEEDLE BIOPSY: 07/05/2022 CLINICAL: Right breast cancer. Comparison is made to exams dated: 05/11/2022 ultrasound biopsy, 05/11/2022 mammogram, and 04/11/2022 mammogram - [facility]. There are scattered areas of fibroglandular density in the right breast (category b / 25%-50% glandular tissue). There is a localization wire within the right breast next to the targeted biopsy clip. IMPRESSION: BENIGN The localization wire is in the expected position adjacent to the targeted biopsy clip. This exam was interpreted at Station ID: [id number]. NOTE: For mammograms, a report in lay terms will be sent to the patient. Approximately 15% of breast malignancies will not be visualized mammographically. In the management of a palpable breast mass, a negative mammogram must not discourage biopsy of a clinically suspicious lesion. Electronically Signed By: Benitez Gomez M.D. fx/:07/05/2022 13:45:54 ACR BI-RADS Category 2: Benign Finding(s) 3342F
--- NOTE | 2022-07-05 10:24 | PM.PREOP ---
Pre-operative Note Interval Note History & Physical reviewed/Exam performed by Physician: Yes Changes to H&P: No
[2022-07-05] MEDS: CEFAZOLIN 2 GM/100 ML PREMIX 100 ML IV (10:48)
[2022-07-05] MEDS: BUPIVACAINE 0.5% W/ EPI (PF) 30 ML VIAL INJ (11:00)
[2022-07-05] MEDS: METHYLENE BLUE 50 MG/10 ML VIAL 25 MG INJ (11:00)
--- NOTE | 2022-07-05 11:01 | SUR.OPER ---
Supine on padded OR bed, head on pillow, arms secured on padded arm boards at <90 degrees abduction, legs uncrossed, safety belt at thigh, tape over blanket over lower legs. Pt positioned per direction and supervision of Dr Mathew.
--- NOTE | 2022-07-05 14:06 | P.OP_ITS ---
Operative Date/Time/Diagnoses Date of procedure: 07/05/22 Pre-op diagnosis: Invasive cancer right breast -inner lower quadrant Post-op diagnosis: same Procedure & Clinicians Procedure: 1. Right Partial mastectomy 2. [place] lymph node biopsy Same procedure as scheduled: Yes Surgeon: Princess Mathew Click Yes if Unassisted: Yes Anesthesia Type: General Operative Notes Specimen(s): other (1. [place] lymph node 2. Additional hot lymph nodes x2 3. Additional axillary tissue without signal.) Procedure in detail: Patient was taken to the operating room placed supine on the operating room table. Bilateral SCDs were in place preoperative antibiotics administered. A time-out was performed. General endotracheal anesthesia was induced. The breast and axilla was prepped and draped in the usual sterile fashion. Methylene blue was injected underneath the nipple. Local anesthesia was used to infuse around the area and a incision was made in a curvilinear fashion at the areolar border in the inner lower quadrant of the breast. This incision was then used to raise skin flaps in 4 directions and this area was followed down in a cuboidal shape toward the chest wall. The wire was encountered laterally quite superficial and then again in the deep medial border the wire again was encountered. This is consistent with the radiologic imaging showing the wire going through the specimen and past it. The specimen was then removed and marked with ink on all 6 sides and sent to radiography for additional imaging. It appeared from the Radiology that the specimen had been removed in total, with the biopsy marker in the center of the specimen. Next a curvilinear incision was made in the axilla it was carried down through the subcutaneous tissues using electrocautery. The clavipectoral fascia was encountered and opened. A Satispay counter was used to ensure that the background axilla had minimal signal. And I began to look for lymph nodes with radioactive signal. The 1st 2 lymph nodes I encountered had total counts of 343 and 375 consecutively. They were not particularly blue in color. Further down I found a sentinel lymph node that was both blue and had signal in excess of 3000. After removal of this lymph node there was no further signal in the axilla. Some additional tissue which had been removed along the course of the dissection was also sent to pathology separately. Complications: none
[2022-07-05] MEDS: HYDROCODONE/ACET 5/325 TABLET 1 TAB PO (14:26)
== END 2022-07-05 14:56 | disposition home or self-care (01) ==
PROVIDERS: PCP Nurse Practitioner; Referring Provider Surgery; Visit Provider Surgery
PROC: (CPT 19301; principal; 2022-07-05 10:30)
DX: C50.311 Malignant neoplasm of lower-inner quadrant of right female breast (principal); C77.3 Secondary and unspecified malignant neoplasm of axilla and upper limb lymph nodes; Z17.0 Estrogen receptor positive status [ER+]
CPT/HCPCS: 19301; 38525; 19285; 38792; 76098; 77065; A9541; C1819; J0690; J1100; J1885; J2250; J2405; J2704; J3010; Q9968

== ENCOUNTER → 2022-07-22 11:21 | Outpatient (CLI) | payer MEDICARE, MEDICAID, SELFPAY | PROVIDERS: PCP Nurse Practitioner; Referring Provider Internal Medicine Medical Oncology; Visit Provider Internal Medicine Medical Oncology | DX: M81.0 Age-related osteoporosis without current pathological fracture (principal); C50.919 Malignant neoplasm of unspecified site of unspecified female breast; Z13.820 Encounter for screening for osteoporosis; Z78.0 Asymptomatic menopausal state; Z92.23 Personal history of estrogen therapy | CPT/HCPCS: 77080 ==

== ENCOUNTER → 2023-05-08 10:14 | Outpatient (CLI) | payer MEDICARE, MEDICAID, SELFPAY ==
--- NOTE | 2023-05-08 | DI.MG.S_ITS ---
BILATERAL DIGITAL DIAGNOSTIC MAMMOGRAM 3D/2D POST LUMPECTOMY: 05/08/2023 CLINICAL: One year follow up Right breast Lumpectomy. Comparison is made to exams dated: 07/05/2022 localization, 07/05/2022 mammogram, 05/11/2022 mammogram, 04/11/2022 mammogram, and 03/17/2022 mammogram - [facility]. There are scattered areas of fibroglandular density in both breasts (category b / 25%-50% glandular tissue). There are benign post operative findings in the right breast. No significant masses, calcifications, or other findings are seen in either breast. There has been no significant interval change. IMPRESSION: BENIGN There is no mammographic evidence of malignancy. A 1 year screening mammogram is recommended. This exam was interpreted at Station ID: [id number]. NOTE: For mammograms, a report in lay terms will be sent to the patient. Approximately 15% of breast malignancies will not be visualized mammographically. In the management of a palpable breast mass, a negative mammogram must not discourage biopsy of a clinically suspicious lesion. Electronically Signed By: Anna lopez/pio:05/08/2023 10:52:58 copy to: RAKEL HUGHES letter sent: Normal Exam ACR BI-RADS Category 2: Benign Finding(s) 3342F
== END ==
PROVIDERS: PCP Nurse Practitioner; Referring Provider Radiology Radiation Oncology; Visit Provider Radiology Radiation Oncology
DX: C50.511 Malignant neoplasm of lower-outer quadrant of right female breast; Z17.0 Estrogen receptor positive status [ER+]
CPT/HCPCS: 77066; G0279

== ENCOUNTER → 2024-02-26 08:01 | Outpatient (CLI) | payer MEDICARE, SELFPAY ==
[2024-02-26 08:28] LABS: Add Manual Diff / Slide Review NO; Basophils Absolute Auto 100 /uL (0-100); Basophils Percent Auto 1.6 % (0-2); Eosinophils Absolute Auto 300 /uL (0-450); Eosinophils Percent Auto 6.1 % (2-4); Hematocrit 42.1 % (36-46); Hemoglobin 14.2 g/dL (12.0-16.0); Lymphocytes Absolute Auto 1600 /uL (1100-4500); Lymphocytes Percent Auto 32.5 % (25-40); Mean Corpuscular HGB Conc 33.6 % (30-36); Mean Corpuscular Hemoglobin 29.5 PG (26-34); Mean Corpuscular Volume 87.7 fL (80-100); Monocytes Absolute Auto 500 /uL (0-900); Neutrophils Absolute Auto 2600 /uL (1500-7000); Neutrophils Percent Auto 50.8 % (50-75); Platelet Count 296 X10^3/uL (150-400); Red Cell Distribution Width 13.4 % (11.6-14.8); White Blood Cell Count 5.1 X10^3/uL (4.5-11.0)
[2024-02-26 08:54] LABS: Alanine Aminotransferase 25 IU/L (<35); Albumin 4.1 g/dL (3.5-5.0); Albumin Globulin Ratio 1.5 (1.0-2.8); Alkaline Phosphatase 93 U/L (38-126); Aspartate Aminotransferase 24 IU/L (14-36); BUN Creatinine Ratio 12.3 (6-22); Bilirubin Total 0.5 mg/dL (0.2-1.3); Blood Urea Nitrogen 7 mg/dL (7-17); Calcium 9.6 mg/dL (8.4-10.2); Carbon Dioxide 26 mmol/L (22-32); Chloride 105 mmol/L (98-107); Cholesterol 234 mg/dL (140-199); Estimated Glomerular Filt Rate > 60 mL/min (>60); Globulin 2.7 g/dL (1.7-4.1); Glucose 124 mg/dL (80-110); HDL Cholesterol 62 mg/dL (40-60); HEMOLYSIS < 15 (0-50); LDL Cholesterol Calculated 151 mg/dL (<100); Potassium 4.5 mmol/L (3.4-5.1); Sodium 137 mmol/L (137-145); Total Protein 6.8 g/dL (6.3-8.2); Triglycerides 105 mg/dL (35-150)
[2024-02-26 09:14] LABS: Free T4, Direct Thyroxine 0.99 ng/dL (0.78-2.19)
[2024-02-26 09:28] LABS: Thyroid Stimulating Hormone 1.47 uIU/mL (0.47-4.68)
== END ==
PROVIDERS: PCP Family Medicine; Referring Provider Family Medicine; Visit Provider Family Medicine
DX: C50.919 Malignant neoplasm of unspecified site of unspecified female breast (principal); E78.5 Hyperlipidemia, unspecified; E04.9 Nontoxic goiter, unspecified; M81.0 Age-related osteoporosis without current pathological fracture
CPT/HCPCS: 36415; 80053; 80061; 84439; 84443; 85025

== ENCOUNTER → 2024-03-04 12:35 | Outpatient (CLI) | payer MEDICARE, SELFPAY ==
--- NOTE | 2024-03-04 12:36 | DI.US.S_ITS ---
PROCEDURE: US THYROID INDICATIONS: Thyroid goiter TECHNIQUE: Real-time scanning was performed of the thyroid gland, with image documentation. COMPARISON: [facility], US, US THYROID, 03/28/2022, 9:14. FINDINGS: Thyroid: Right lobe measures 5.6 x 1.1 x 2.0 cm. Left lobe measures 7.1 x 2.1 x 2.1 cm. Isthmus is 0.9 cm thick. Echotexture is heterogeneous. Nodule number: 1 Location: Left inferior pole Size: 3.4 x 2.4 x 2.6 cm, previously 3.3 x 2.4 x 2.2 cm. Composition: Solid Echogenicity: Isoechoic Shape: wider than tall. Margins: Smooth Echogenic foci: None Total points: 3 ACR TI-RADS category: 3 Nodule number: 2 Location: Left superior pole Size: 1.6 x 1.0 x 1.2 cm, previously 1.3 x 0.9 x 1.0 cm. Composition: Solid Echogenicity: Isoechoic Shape: wider than tall. Margins: Ill-defined Echogenic foci: None Total points: 3 ACR TI-RADS category: 3 Nodule number: 3 Location: Right inferior pole Size: 3.0 x 1.3 x 2.4, previously 2.9 x 1.6 x 2.3 cm. Composition: Spongiform ACR TI-RADS category: 1 Nodule number: 4 Location: Right superior pole Size: 1.5 x 0.8 x 1.0 cm, previously 0.9 x 0.7 x 0.7 cm. Composition: Spongiform ACR TI-RADS category: 1 IMPRESSION: Enlarged, heterogeneous thyroid consistent with thyroiditis. Multiple thyroid nodules. Nodule 1 does meet size criteria for biopsy, if not performed in the past. Nodule 2 does not meet size criteria for biopsy, but continued follow-up in 2026 is recommended. Nodule 3 and 4 are statistically benign and require no further follow-up. ACR TI-RADS definitions and recommendations: TI-RADS 1 (benign): 0 points. FNA not needed. TI-RADS 2 (not suspicious): 2 points. FNA not needed. TI-RADS 3 (mildly suspicious): 3 points. * FNA if 2.5 cm or larger, follow up if 1.5 cm or larger (at 1, 3, and 5 years). TI-RADS 4 (moderately suspicious): 4-6 points. * FNA if 1.5 cm or larger, follow up if 1 cm or larger (at 1, 2, 3, and 5 years). TI-RADS 5 (highly suspicious): 7 points or more. * FNA if 1 cm or larger, follow up if 0.5 cm or larger (every year for 5 years). Dictated by: Gary Mon M.D. on 03/04/2024 at 15:56 Approved by: Gary Mon M.D. on 03/04/2024 at 16:01
== END ==
PROVIDERS: PCP Family Medicine; Referring Provider Family Medicine; Visit Provider Family Medicine
DX: E04.2 Nontoxic multinodular goiter (principal)
CPT/HCPCS: 76536

== ENCOUNTER → 2024-05-16 17:13 | Outpatient (CLI) | payer MEDICARE, SELFPAY ==
--- NOTE | 2024-05-16 17:13 | DI.MG.S_ITS ---
BILATERAL DIGITAL SCREENING MAMMOGRAM 3D/2D WITH CAD POST LUMPECTOMY: 05/16/2024 CLINICAL: Routine screening. Personal history of right breast cancer. Comparison is made to exams dated: 05/08/2023 mammogram, 03/17/2022 mammogram, and 08/14/2017 mammogram - [facility]. There are scattered areas of fibroglandular density (category b / 25%-50% glandular tissue). Current study was also evaluated with a Computer Aided Detection (CAD) system. There are benign post operative findings in the right breast. No significant masses, calcifications, or other findings are seen in either breast. There has been no significant interval change. IMPRESSION: BENIGN There is no mammographic evidence of malignancy. A 1 year screening mammogram is recommended. This exam was interpreted at Station ID: [id number]. NOTE: For mammograms, a report in lay terms will be sent to the patient. Approximately 15% of breast malignancies will not be visualized mammographically. In the management of a palpable breast mass, a negative mammogram must not discourage biopsy of a clinically suspicious lesion. Electronically Signed By: Dominga bowie/pio:05/17/2024 12:54:11 copy to: RAKEL HUGHES letter sent: Normal Exam ACR BI-RADS Category 2: Benign
== END ==
PROVIDERS: PCP Family Medicine; Referring Provider Family Medicine; Visit Provider Family Medicine
DX: Z12.31 Encounter for screening mammogram for malignant neoplasm of breast (principal); Z85.3 Personal history of malignant neoplasm of breast
CPT/HCPCS: 77063; 77067

== ENCOUNTER → 2024-08-16 08:33 | Outpatient (CLI) | payer MEDICARE, SELFPAY ==
[2024-08-16 09:47] LABS: Alanine Aminotransferase 28 IU/L (<35); Albumin 4.3 g/dL (3.5-5.0); Albumin Globulin Ratio 1.6 (1.0-2.8); Alkaline Phosphatase 86 U/L (38-126); Aspartate Aminotransferase 26 IU/L (14-36); BUN Creatinine Ratio 14.1 (6-22); Bilirubin Total 0.5 mg/dL (0.2-1.3); Blood Urea Nitrogen 9 mg/dL (7-17); Calcium 9.5 mg/dL (8.4-10.2); Carbon Dioxide 25 mmol/L (22-32); Chloride 103 mmol/L (98-107); Cholesterol 256 mg/dL (140-199); Estimated Glomerular Filt Rate > 60 mL/min (>60); Globulin 2.7 g/dL (1.7-4.1); Glucose 116 mg/dL (80-110); HDL Cholesterol 54 mg/dL (40-60); HEMOLYSIS < 15 (0-50); LDL Cholesterol Calculated 175 mg/dL (<100); Potassium 4.4 mmol/L (3.4-5.1); Sodium 137 mmol/L (137-145); Triglycerides 133 mg/dL (35-150)
[2024-08-16 10:14] LABS: Add Manual Diff / Slide Review NO; Basophils Absolute Auto 100 /uL (0-100); Basophils Percent Auto 1.2 % (0-2); Eosinophils Absolute Auto 300 /uL (0-450); Eosinophils Percent Auto 5.6 % (2-4); Hematocrit 44.6 % (36-46); Lymphocytes Absolute Auto 1300 /uL (1100-4500); Lymphocytes Percent Auto 27.9 % (25-40); Mean Corpuscular HGB Conc 33.7 % (30-36); Mean Corpuscular Hemoglobin 29.8 PG (26-34); Mean Corpuscular Volume 88.2 fL (80-100); Monocytes Absolute Auto 400 /uL (0-900); Monocytes Percent Auto 7.6 % (3-14); Neutrophils Absolute Auto 2700 /uL (1500-7000); Neutrophils Percent Auto 57.7 % (50-75); Platelet Count 306 X10^3/uL (150-400); Red Blood Cell Count 5.05 X10^6/uL (4.0-5.2); White Blood Cell Count 4.7 X10^3/uL (4.5-11.0)
[2024-08-16 10:41] LABS: Hemoglobin A1C% w Est Avg Glu 5.7 % (4.0-6.0)
== END ==
PROVIDERS: PCP Family Medicine; Referring Provider Family Medicine; Visit Provider Family Medicine
DX: C50.919 Malignant neoplasm of unspecified site of unspecified female breast (principal); E78.5 Hyperlipidemia, unspecified; E04.9 Nontoxic goiter, unspecified
CPT/HCPCS: 36415; 80053; 80061; 83036; 85025

== ENCOUNTER → 2024-09-02 08:32 | Outpatient (CLI) | payer MEDICARE, SELFPAY ==
--- NOTE | 2024-09-02 08:33 | DI.RAD.S_ITS ---
PROCEDURE: XR RIBS BI MIN 4V W CXR1V INDICATIONS: Bilateral rib pain TECHNIQUE: Four views of the ribs were acquired, along with a single view chest. COMPARISON: None. FINDINGS: Heart, mediastinum and pulmonary vascular: Heart is normal in size and configuration. Mediastinum is unremarkable. Pulmonary vascular is normal. Lungs: Clear Pleural spaces: Normal-no effusions or pneumothorax. Bones and soft tissues: Normal . No fracture or other osseous abnormality identified in either rib IMPRESSION: Normal chest and bilateral ribs Dictated by: Meng Reyna M.D. on 09/02/2024 at 10:47 Approved by: Meng Reyna M.D. on 09/02/2024 at 10:49
== END ==
PROVIDERS: PCP Family Medicine; Referring Provider Family Medicine; Visit Provider Family Medicine
DX: R07.81 Pleurodynia (principal)
CPT/HCPCS: 71111

== ENCOUNTER → 2024-09-13 10:08 | Outpatient (CLI) | payer MEDICARE, SELFPAY ==
--- NOTE | 2024-09-13 10:09 | DI.RAD.S_ITS ---
PROCEDURE: XR DEXA AXIAL SKELETON INDICATIONS: Osteoporosis COMPARISON: [facility], , XR DEXA AXIAL SKELETON, 07/22/2022, 11:50. FINDINGS: Lumbar Spine (L2, L4): Bone mineral density 0.766 g/cm2, T score -2.8, previously -2.6. Left Femoral Neck: Bone mineral density 0.513 g/cm2, T score -3.0. Left Hip: Bone mineral density 0.615 g/cm2, T score -2.7, previously -2.4. Fracture Risk Calculation (when applicable): 10-year fracture risk of a major osteoporotic fracture 17 percent and of a hip fracture 4.8 percent. (T score greater or equal to -1.0 to: NORMAL) (T score from -1.1 to -2.4: OSTEOPENIA) (T score less than or equal to -2.5: OSTEOPOROSIS) IMPRESSION: 1. Osteoporosis of the lumbar spine. 2. Osteoporosis of the left hip and femoral neck. Follow-up guidelines as follows: Osteoporosis: Consider a repeat DEXA and Vertebral Fracture Assessment (VFA) exam in 2 years or sooner if medically necessary, to reassess this patient's status. Osteopenia: Consider a repeat DEXA in 2-3 years to reassess this patient's status, or if there is a new clinical indication. Normal: Consider a repeat DEXA in 5 years or sooner, or if there is a new clinical indication. All treatment decisions require clinical judgment and consideration of individual patient factors, including patient preferences, comorbidities, previous drug use, risk factors not captured in the FRAX model (e.g., frailty, falls, vitamin D deficiency, increased bone turnover, interval significant decline in bone density ) and possible under- or over-estimation of fracture risk by FRAX. In addition, the NOF Guide recommends that FDA-approved medical therapies be considered in postmenopausal women and men age >= 50 years with a: * Hip or vertebral (clinical or morphometric) fracture * T-score of <=-2.5 at the spine or hip * Ten-year fracture probability by FRAX of >= 3% for hip fracture or >=20% for major osteoporotic fracture. Dictated by: Cash Srinivasan M.D. on 09/13/2024 at 14:18 Approved by: Cash Srinivasan M.D. on 09/13/2024 at 14:23
== END ==
PROVIDERS: PCP Family Medicine; Referring Provider Family Medicine; Visit Provider Family Medicine
DX: M81.0 Age-related osteoporosis without current pathological fracture (principal)
CPT/HCPCS: 77080

== ENCOUNTER → 2024-11-27 08:43 | Outpatient (CLI) | payer MEDICARE, SELFPAY ==
[2024-11-27 10:06] LABS: Hemoglobin A1C% w Est Avg Glu 5.8 % (4.0-6.0)
[2024-11-27 10:45] LABS: Calcium 9.5 mg/dL (8.4-10.2); Glucose 113 mg/dL (70-99); Phosphorous 3.7 mg/dL (2.8-4.1)
[2024-11-27 10:56] LABS: Vitamin D 25 Hydroxy (D3) 41.6 ng/mL (30.0-100.0)
[2024-11-28 07:09] LABS: Ionized Calcium 5.1 mg/dL (4.5-5.6)
[2024-12-09 14:08] LABS: N-telo/Creat. Ratio 94 (0-89); N-telopeptide 592 nmol BCE (Not Estab.)
== END ==
PROVIDERS: PCP Family Medicine; Visit Provider Naturopath
DX: R73.09 Other abnormal glucose (principal); M81.0 Age-related osteoporosis without current pathological fracture
CPT/HCPCS: 36415; 82306; 82310; 82330; 82523; 82947; 83036; 84100

== ENCOUNTER → 2025-05-06 07:58 | Outpatient (CLI) | payer MEDICARE, SELFPAY ==
[2025-05-06 08:46] LABS: Add Manual Diff / Slide Review NO; Hematocrit 43.7 % (36-46); Hemoglobin 14.7 g/dL (12.0-16.0); Lymphocytes Absolute Auto 1600 /uL (1100-4500); Mean Corpuscular HGB Conc 33.7 % (30-36); Mean Corpuscular Hemoglobin 29.2 PG (26-34); Mean Corpuscular Volume 86.7 fL (80-100); Platelet Count 322 X10^3/uL (150-400)
[2025-05-06 09:05] LABS: Hemoglobin A1C% w Est Avg Glu 6.1 % (4.0-6.0)
[2025-05-06 09:19] LABS: Vitamin D 25 Hydroxy (D3) 42.3 ng/mL (30.0-100.0)
[2025-05-06 09:23] LABS: Alanine Aminotransferase 19 IU/L (<35); Albumin 4.2 g/dL (3.5-5.0); Albumin Globulin Ratio 1.4 (1.0-2.8); Alkaline Phosphatase 87 U/L (38-126); Blood Urea Nitrogen 10 mg/dL (7-17); Calcium 9.5 mg/dL (8.4-10.2); Carbon Dioxide 27 mmol/L (22-32); Chloride 104 mmol/L (98-107); Cholesterol 243 mg/dL (140-199); Estimated Glomerular Filt Rate > 60 mL/min (>60); Globulin 3.0 g/dL (1.7-4.1); Glucose 111 mg/dL (70-99); HDL Cholesterol 69 mg/dL (40-60); HEMOLYSIS < 15 (0-50); Potassium 4.3 mmol/L (3.4-5.1); Sodium 139 mmol/L (137-145); Total Protein 7.2 g/dL (6.3-8.2); Triglycerides 131 mg/dL (35-150)
[2025-05-06 09:53] LABS: TSH w/ Reflex to FT4 0.99 uIU/mL (0.47-4.68)
== END ==
PROVIDERS: PCP Family Medicine; Referring Provider Family Medicine; Visit Provider Family Medicine
DX: R73.03 Prediabetes (principal); E78.5 Hyperlipidemia, unspecified; E55.9 Vitamin D deficiency, unspecified; E04.9 Nontoxic goiter, unspecified
CPT/HCPCS: 36415; 80053; 80061; 82306; 83036; 84443; 85025

== ENCOUNTER → 2025-06-02 16:35 | Outpatient (CLI) | payer MEDICARE, SELFPAY ==
--- NOTE | 2025-06-02 16:36 | DI.US.S_ITS ---
PROCEDURE: US THYROID INDICATIONS: thyroid checked TECHNIQUE: Real-time scanning was performed of the thyroid gland, with image documentation. COMPARISON: [facility], [place], US THYROID, 03/04/2024, 13:00. FINDINGS: Thyroid: Right lobe measures 5.9 x 2 x 2.3 cm. Left lobe measures 5.8 x 1.9 x 1.9 cm. Isthmus is 1.1 cm thick. Echotexture is heterogeneous. The thyroid is diffusely enlarged. Nodule number: 1 Location: Left inferior Size: 3.5 x 2.8 x 2.6 cm, previously 3.4 x 2.4 x 2.6 cm. Composition: Solid Echogenicity: Isoechoic Shape: wider than tall. Margins: Smooth Echogenic foci: None Total points: 3 ACR TI-RADS category: 3 Nodule number: 2 Location: Left superior Size: 1.5 x 1.2 x 1.0 cm, previously 1.6 x 1.0 x 1.2 cm. Composition: Solid Echogenicity: Isoechoic Shape: wider than tall. Margins: Ill-defined Echogenic foci: None Total points: 3 ACR TI-RADS category: 3 Nodule number: 3 Location: Right inferior Size: 3.1 x 2.1 x 2.5 cm, previously 3 x 1.3 x 2.4 cm. Composition: Solid Echogenicity: Isoechoic Shape: Taller than wide Margins: Ill-defined Echogenic foci: None Total points: 6 ACR TI-RADS category: 4 Nodule number: 4 Location: Right superior Size: 1.4 x 1.2 x 1.1 cm. Previously 1.5 x 1.0 x 0.8 cm Composition: Solid Echogenicity: Isoechoic Shape: wider than tall. Margins: Smooth Echogenic foci: None Total points: 3 ACR TI-RADS category: 3 IMPRESSION: Enlarged, heterogeneous thyroid parenchyma, which can be seen with chronic thyroiditis. Recommend fine needle sampling of the right inferior 3.1 cm TR-4 nodule. The left inferior nodule #1, TR-3, again meets criteria for FNA if not previously performed in the past. Clinical management should incorporate the results of prior sampling if performed. Recommend continued follow-up of left superior nodule #2, TR-3. ACR TI-RADS definitions and recommendations: TI-RADS 1 (benign): 0 points. FNA not needed. TI-RADS 2 (not suspicious): 2 points. FNA not needed. TI-RADS 3: 3 points. * FNA if 2.5 cm or larger, follow up if 1.5 cm or larger (at 1, 3, and 5 years). TI-RADS 4: 4-6 points. * FNA if 1.5 cm or larger, follow up if 1 cm or larger (at 1, 2, 3, and 5 years). TI-RADS 5: 7 points or more. * FNA if 1 cm or larger, follow up if 0.5 cm or larger (every year for 5 years). 1 Dictated by: Todd Odell M.D. on 06/03/2025 at 8:31 Approved by: Todd Odell M.D. on 06/03/2025 at 8:41
== END ==
LOC: MAMMO 16:36
PROVIDERS: PCP Family Medicine; Referring Provider Family Medicine; Visit Provider Family Medicine
DX: E04.2 Nontoxic multinodular goiter (principal)
CPT/HCPCS: 76536

== ENCOUNTER → 2025-06-03 13:18 | Outpatient (CLI) | payer MEDICARE, SELFPAY ==
--- NOTE | 2025-06-03 13:19 | DI.MG.S_ITS ---
MM screening mammo BI: 06/03/2025. BI-RADS: 2 CLINICAL: 70-year old female for bilateral screening mammogram. No Tyrer-Cuzick risk score calculation due to the patient's personal history of breast cancer. Patient reports a history of right breast carcinoma diagnosed at age 68. Status-post right lumpectomy with radiation therapy. No first-degree family history of breast cancer. PRIOR EXAMS 05/16/2024, 05/08/2023, 07/05/2022, 05/11/2022. MAMMOGRAPHY TECHNIQUE: 2D and 3D (tomosynthesis) digital mammographic views obtained, with additional images as needed for full coverage. Current study was also evaluated with a Computer Aided Detection (CAD) system. DENSITY B. There are scattered areas of fibroglandular density. MAMMOGRAPHY FINDINGS Right: Benign-appearing post-surgical changes noted on the right. There are no suspicious masses, calcifications, or other findings in the breast. Left: No suspicious mass, asymmetry, microcalcification, or other abnormality seen. IMPRESSION: Right * No evidence of malignancy with benign findings. Left * No evidence of malignancy. RECOMMENDATIONS Bilateral * Annual screening mammography. OVERALL ASSESSMENT CATEGORY BI-RADS-2: Benign. The [employer] recommends annual screening mammography beginning at age 40 for women with average risk of breast cancer. ELECTRONICALLY SIGNED: Uzma Porter M.D. on 06/04/2025 at 09:25:44 AM PT Interpreting Station ID: [id number]
== END ==
LOC: MAMMO 13:18
PROVIDERS: PCP Family Medicine; Referring Provider Family Medicine; Visit Provider Family Medicine
DX: Z12.31 Encounter for screening mammogram for malignant neoplasm of breast (principal); Z85.3 Personal history of malignant neoplasm of breast
CPT/HCPCS: 77063; 77067